=== PATIENT | female | born 1940 | race Caucasian/White ===

== ENCOUNTER → 2023-08-16 16:04 | Outpatient (REF) | payer OTHER, SELFPAY | LOC: DHCBS HW 16:04 | PROVIDERS: ATTENDING PHYSICIAN Internal Medicine Cardiovascular Disease; FAMILY PHYSICIAN Internal Medicine | DX: R06.09 Other forms of dyspnea (principal) | CPT/HCPCS: 93306 ==

== ENCOUNTER → 2023-08-31 09:45 | Outpatient (REF) | payer OTHER, SELFPAY | LOC: RCS 09:45 | PROVIDERS: ATTENDING PHYSICIAN Internal Medicine Cardiovascular Disease; FAMILY PHYSICIAN Internal Medicine | DX: R06.09 Other forms of dyspnea (principal) | CPT/HCPCS: 93017; 93350 ==